=== PATIENT | female | born 1965 | race Hispanic/Latino ===

== ENCOUNTER 2024-08-07 06:26 | Day surgery (SDC) | payer OTHER ==
[~2024-08-07] VITALS: Ht 160 cm; Wt 63.5 kg
[2024-08-07] VITALS (10 sets, daily range): BP systolic 98–137; BP diastolic 53–66; PULSE 51–57; RESP 15–18; TEMP 97.7–98.1
[~2024-08-07 06:26] MED LIST: CALC-877 PO; SERT-439 PO; [UNRECOGNIZED DRUG - OTHER] PO
[2024-08-07] MEDS: 0.9%NACL 1000ML 1,000 ML IV ONE (07:03)
[2024-08-07] MEDS ORDERED: proPOFol 10 MG/ML 20ML VIAL IV ONE (07:28)
== END 2024-08-07 09:30 | disposition home or self-care (01) ==
LOC: DAH 06:26 → ENDO 06:26 → EDSEX 08:30 → ENDO 09:30
PROVIDERS: ATTEND Surgery
DX: R10.13 Epigastric pain (principal); K29.50 Unspecified chronic gastritis without bleeding; K21.00 Gastro-esophageal reflux disease with esophagitis, without bleeding; K22.89 Other specified disease of esophagus; K44.9 Diaphragmatic hernia without obstruction or gangrene; K91.1 Postgastric surgery syndromes; Z98.84 Bariatric surgery status; Z79.899 Other long term (current) drug therapy
CPT/HCPCS: 81025; 43239; J7030; J2704; A4620; A4215; J3490